=== PATIENT | male | born 1995 | race Caucasian/White ===

== ENCOUNTER → 2021-02-05 09:58 | Outpatient (BNVA) | payer SELFPAY | PROVIDERS: Visit Provider Specialist | DX: G56.03 Carpal tunnel syndrome, bilateral upper limbs (principal); R20.0 Anesthesia of skin; R20.2 Paresthesia of skin | CPT/HCPCS: 95910 ==

== ENCOUNTER 2021-10-14 10:32 | Emergency (ER) | payer SELFPAY ==
[2021-10-14 11:30] VITALS: BP 120/70; PULSE 70; RESP 16; TEMP 36.7; O2SAT 100; BMI 21.7
--- NOTE | 2021-10-14 11:53 | XRR_ITS ---
PROCEDURE INFORMATION: Exam: XR Lumbosacral Spine Exam date and time: 10/14/2021 11:53 AM Age: 25 years old Clinical indication: Low back pain TECHNIQUE: Imaging protocol: XR of the lumbosacral spine. Views: 2 or 3 views. COMPARISON: CT abdomen pelvis w con* [id number] 09/06/2015 8:06 PM FINDINGS: Bones/joints: There are 5 lumbar type vertebral bodies. There is a grade 1 retrolisthesis of L5 that is unchanged from prior. No acute fracture is identified. No significant degenerative disc disease is appreciated. The sacroiliac joints are grossly symmetric. The sacrum is partially obscured by overlying bowel gas/stool. XR/XR lumbar spine 2-3V* [id number] IMPRESSION: 1. No acute abnormality is identified. Consider MRI of the lumbar spine to further assess if clinically warranted. 2. Unchanged grade 1 retrolisthesis of L5. Radiation Dose CTDIVOL = (mGy): DLP = (mGy-cm)
[2021-10-14 11:58] VITALS: BP 123/74; PULSE 73; RESP 18; O2SAT 100
--- NOTE | 2021-10-14 12:53 | ED_ITS ---
HPI - Back Pain/Injury General: Chief Complaint: Back Pain/Injury Stated Complaint: LOWER BACK PAIN Time Seen by Provider: 10/14/21 11:36 Source: patient Mode of arrival: ambulatory Limitations: no limitations History of Present Illness: HPI Narrative: 25-year-old male presents to the ER today for low back pain x2 to 3 days. Patient reports he was bent over this weekend lifting a laundry basket when he felt a pop in his low back. Patient reports he has had severe pain since that time. He reports the pain is located midline in the low back but does radiate down into the right buttock. Patient reports history of back pain but no known diagnosis. Patient reports he has not taken anything at home for the pain at this time. Patient reports no numbness or tingling of the lower legs. Denies any loss of bowel or bladder control at this time. MD elicited complaint: back pain Pertinent past history: prior back pain Onset (ago): day(s) Timing: constant Severity: severe Similar Symptoms Previously: Yes Quality: sharp, stabbing and aching Location: lumbar spine Radiation: buttocks (right side) Exacerbating factors: movement and walking Relieving factors: none Context: while lifting and bending Associated symptoms: Reports no associated symptoms; Deny abdominal pain, chills, fever(s), nausea or vomiting Work related injury: No Review of Systems General: Reports: 10 or more systems reviewed and unremarkable except in HPI and below Const: Denies: fever(s), chills or body aches ENMT: Denies: throat pain, nasal discharge or nasal congestion Card: Denies: chest pain or palpitations Resp: Denies: dyspnea, productive cough or wheezing GI: Denies: abdominal pain, nausea, vomiting, diarrhea or constipation Musc: Reports: back pain; Denies: neck pain Skin/Breast: Denies: rash Neuro: Denies: headache(s) Physical Exam Const: COMMON NORMALS: average body habitus, patient oriented x3 and healthy appearing GENERAL APPEARANCE: cooperative and in distress (mild with movement); not comfortable HENMT: COMMON NORMALS: normocephalic, external ears normal and Normal external nose present HEAD & SCALP: normocephalic NOSE: Normal external nose present EXTERNAL EAR: Yes external ears normal Eye: COMMON NORMALS: conjunctivae normal CONJUNCTIVA: Yes conjunctivae normal Neck/C-Spine: COMMON NORMALS: full ROM and no lymphadenopathy Resp: COMMON NORMALS: normal respiratory effort, No retractions and clear to auscultation bilaterally AUSCULTATION: clear to auscultation bilaterally Cardio: COMMON NORMALS: regular rate and regular rhythm RATE: regular rate RHYTHM: regular rhythm GI: COMMON NORMALS: Normal to inspection, nondistended, normoactive bowel sounds present and non-tender : COMMON NORMALS: Yes no CVA tenderness BLADDER/KIDNEY EXAM: Yes no CVA tenderness Back/Pelvis: COMMON NORMALS: no CVA tenderness THORACIC SPINE/UPPER BACK: Yes normal to inspection and Yes thoracic ROM normal LUMBAR SPINE/LOWER BACK: Yes normal to inspection, Yes ROM limited (secondary to pain), Yes pain with ROM, Yes lumbar spinal tenderness, No paraspinal muscle tenderness, No paraspinal muscle spasm and Yes bend over test abnormal PELVIS: Yes buttocks normal SACROILIAC JOINTS: Yes SI joints normal Extremity: COMMON NORMALS: normal to inspection and full ROM Neuro: COMMON NORMALS: patient oriented x3 and moves all extremities Psych: COMMON NORMALS: mental status grossly normal, Normal thought process present and cooperative THOUGHT PROCESS: Normal thought process present Skin: COMMON NORMALS: no rashes or lesions noted GENERAL SKIN EXAM: no rashes or lesions noted Course ED course: Patient presents to the ER today for low back pain x2 to 3 days. Patient was lifting a laundry basket and felt a pop in his low back. We will get an x-ray at this time. Patient has not taken anything for pain but refuses anything at this time for pain. Vital Signs: Vital signs: Vital Signs Temperature 98.1 F 10/14/21 11:30 Pulse Rate 73 10/14/21 11:58 Respiratory Rate 18 10/14/21 11:58 Blood Pressure 123/74 10/14/21 11:58 Pulse Oximetry 100 10/14/21 11:58 MDM - Back Pain/Injury MDM Narrative: Medical decision making narrative: 25-year-old male presents to the ER today for low back pain after lifting a laundry basket Thursday. Patient reports pain is constant and located midline in the low back. He reports there is some radiation to the right buttock. On exam he is tender along the lower L- spine but no SI joint tenderness is noted. No muscle spasms noted on exam either. X-ray done in ER which indicates nothing acute, all chronic changes are noted on the x-ray. Patient may have a bulging disc causing his pain, which we better assessed on MRI. Patient is neurovascularly intact and has not had any issues with loss of bowel or bladder control. Discussed with patient that he likely he needs follow-up with his PCP for further imaging. We will do a muscle relaxer, anti-inflammatory, and steroid to try to lessen patient's pain at this time. Recommend warm moist heat alternating with ice, topical muscle rub but do not use with heat or ice, and rest. Return to the ER with any new or worsening symptoms. Patient verbalized understanding and is in agreement with this treatment plan. Imaging Data^: Other Xray: Radiologist's impression: [employer] [address] [address] XRay Report Signed Patient: Ayanna Lu Unit #: [id number] : 1995 Age/Sex: 25 / M ADM Date: 10/14/21 Loc: ER Room/Bed: Attending Dr: Ordering Provider/Ordering MD: Rachel Jade Date of Service: 10/14/21 Procedure(s): XR lumbar spine 2-3V* 80270 Accession Number(s): [id number] Report Number: [id number] PROCEDURE INFORMATION: Exam: XR Lumbosacral Spine Exam date and time: 10/14/2021 11:53 AM Age: 25 years old Clinical indication: Low back pain TECHNIQUE: Imaging protocol: XR of the lumbosacral spine. Views: 2 or 3 views. COMPARISON: CT abdomen pelvis w con* [id number] 09/06/2015 8:06 PM FINDINGS: Bones/joints: There are 5 lumbar type vertebral bodies. There is a grade 1 retrolisthesis of L5 that is unchanged from prior. No acute fracture is identified. No significant degenerative disc disease is appreciated. The sacroiliac joints are grossly symmetric. The sacrum is partially obscured by overlying bowel gas/stool. XR/XR lumbar spine 2-3V* [id number] IMPRESSION: 1. No acute abnormality is identified. Consider MRI of the lumbar spine to further assess if clinically warranted. 2. Unchanged grade 1 retrolisthesis of L5. Radiation Dose CTDIVOL = (mGy): DLP = (mGy-cm) Dictated By: Bandar Austin Signed By: Bandar Austin Signed Date/Time: 10/14/21 1254 DD/ 1153 Critical Care Time Critical Care Time: Critical Care Time: No Discharge Plan Discharge Patient Disposition: Home Clinical Impression: Acute bilateral low back pain Qualifiers: Sciatica presence: without sciatica Qualified Code(s): M54.50 - Low back pain, unspecified Condition: Stable Prescriptions: New methocarbamol 750 mg tablet 750 mg PO Q8H Qty: 21 RF: 0 Medrol (Nash) 4 mg tablets,dose pack See Rx Instructions PO .COMPLEX Qty: 21 RF: 0 ketorolac 10 mg tablet 10 mg PO Q8H PRN (Reason: pain) 3 Days RF: 0 Discharge Orders: Discharge ED (Routine); Ordered 10/14/21 Ordered By: Rachel Jade Discharge Diet: Usual diet Discharge Activity: Limit activity as instructed Patient Instructions: Acute Low Back Pain (ED), Opioid Safety Activity Restrictions/Additional Instructions: Take all medications as prescribed. Recommend warm, moist heat alternating with ice to the low back. Rest, and easy stretches recommended. Topical muscle rub recommended but do not use with heat or ice. If pain has not improved in 7 to 10 days, follow-up with PCP to discuss further imaging. Return to the ER with any new or worsening symptoms. Coding Level of Care Code ED Mathematics Technician for Maggy Fwd Exam Comprehensive
--- NOTE | 2021-10-18 13:35 | DCPLANNER ---
graphics manager had message to speak with patient about getting a primary care physician. graphics manager spoke with patient, he stated that he would like help in getting established with a physician. graphics manager called [facility], spoke with Casie, a follow up appointment was scheduled for October at 8:[address] Powell at [facility]. graphics manager called patient and gave patient the appointment information.
--- NOTE | 2021-11-13 15:13 | DCPLANNER ---
Patient had a follow up appointment scheduled with [facility] - patient did attend appointment.
== END 2021-10-14 13:13 | disposition home or self-care (01) ==
PROVIDERS: Emergency Provider Physician Assistant
DX: M54.50 Low back pain, unspecified (principal)
CPT/HCPCS: 72100; 99282

== ENCOUNTER → 2021-10-28 11:33 | Outpatient (BNVA) | payer SELFPAY | PROVIDERS: Visit Provider Registered Nurse Neonatal Intensive Care | DX: M79.671 Pain in right foot (principal); S89.91XA Unspecified injury of right lower leg, initial encounter; X58.XXXA Exposure to other specified factors, initial encounter | CPT/HCPCS: 73590; 73630 ==

== ENCOUNTER 2021-11-14 13:46 | Outpatient (CLI) | payer SELFPAY ==
--- NOTE | 2021-11-14 13:51 | XR_ITS ---
WS: [id number] Left hand, AP and lateral views, 11/14/2021 Clinical Data: FB/Injury Comparison: Left hand, 08/17/2014. Findings: No fractures or dislocations are seen. There is a metal fragment adjacent to the radial base of the s econd finger proximal phalanx. The joint spaces are normal XR/XR hand LT 2V [id number] Impression: 1. Negative for fracture. 2. Radiopaque foreign body adjacent to base of left second finger proximal phal anx.
--- NOTE | 2021-11-14 13:51 | XR_ITS ---
WS: [id number] Right ankle, 2 views, 11/14/2021 Clinical Data: Crush injury Comparison: None. Findings: No fractures or dislocations are seen. The ankle mortise is normal. The talus and calcaneus are unrem arkable. No soft tissue swelling over the medial or lateral malleolus is seen. XR/XR ankle RT 2V [id number] Impression: Negative right ankle.
--- NOTE | 2021-11-14 13:51 | XR_ITS ---
WS: [id number] Right leg including the tibia and fibula, 2 views, 11/14/2021 Clinical Data: Crush injury Comparison: None. Findings: No fractures or dislocations are seen. The tibia and fibula are intact. The soft tissues are normal. XR/XR tibia fibula RT 2V [id number] Impression: Negative for fracture.
== END 2021-11-14 13:47 | disposition home or self-care (01) ==
PROVIDERS: Visit Provider Nurse Practitioner Family
DX: S87.81XA Crushing injury of right lower leg, initial encounter (principal); S69.92XA Unspecified injury of left wrist, hand and finger(s), initial encounter; S60.451A Superficial foreign body of left index finger, initial encounter; X58.XXXA Exposure to other specified factors, initial encounter
CPT/HCPCS: 73120; 73590; 73600

== ENCOUNTER → 2022-12-24 16:18 | Outpatient (BNVA) | payer BC, SELFPAY | PROVIDERS: Visit Provider Nurse Practitioner Family | DX: R30.0 Dysuria (principal) | CPT/HCPCS: 81000 ==

== ENCOUNTER 2022-12-26 08:32 | Emergency (ER) | payer BC, MEDICAID, SELFPAY ==
--- NOTE | 2022-12-26 08:34 | ED_ITS ---
HPI - Male Genitourinary General: Chief complaint: Urogenital-Male Stated complaint: possible kidney stone Time Seen by Provider: 12/26/22 08:32 Source: patient Mode of arrival: ambulatory Limitations: no limitations History of Present Illness: Patient is a nice 27-year-old male who presents to ED today with a complaint of left flank and back pain over the past several days. Patient states he feels like he is urinating sand. He did notice some hematuria a few days ago but feels like this is cleared up. He [facility] and diagnosed with kidney/ureter stone and placed on Flomax. He has been taking this as directed. He states yesterday he had quite a bit of pain all day and felt like he was having chills. Patient states pain sometimes radiates into his abdomen. He has some nausea but has not had any episodes of emesis. No bowel changes. No documented fevers. He does have a history of kidney stones. He states his father has a longstanding history of stones. MD Complaint: other (flank pain, painful urination, concerned for stone) Onset (ago): day(s) Duration: constant Location: left flank Severity: severe Quality: sharp Relieving factors: none Exacerbating factors: urination Associated symptoms: Reports dysuria (reports it feels like he is urinating sand) and nausea; Deny hematuria or vomiting Related Data: Sexually active: Yes Review of Systems Const: Reports: chills; Denies: fever(s), body aches, fatigue or malaise Card: Denies: chest pain Resp: Denies: dyspnea GI: Reports: nausea; Denies: abdominal pain, vomiting or change in bowel habits : Reports: flank pain and dysuria (reports it feels like he is urinating sand); Denies: difficulty urinating, urinary frequency, urinary urgency, urinary hesitancy, urinary dribbling or hematuria Musc: Reports: back pain (L flank/back pain); Denies: neck pain, extremity pain, extremity swelling, joint pain or joint swelling Skin/Breast: Denies: rash Neuro: Denies: headache(s), numbness in extremities, weakness in extremities or sensory changes PFS ED PFSH: Social History Smoking and tobacco status: never smoked Physical Exam Const: COMMON NORMALS: average body habitus, patient oriented x3, no limitations, healthy appearing, alert and well nourished GENERAL APPEARANCE: cooperative and in distress (appears uncomfortable secondary to discomfort ) Resp: COMMON NORMALS: normal respiratory effort and clear to auscultation b ilaterally AUSCULTATION: clear to auscultation bilaterally Cardio: COMMON NORMALS: regular rate and regular rhythm RATE: regular rate RHYTHM: regular rhythm GI: COMMON NORMALS: Normal to inspection, nondistended, normoactive bowel sounds present, Soft to palpation, No hepatosplenomegaly present and no masses INSPECTION: Yes normal to inspection AUSCULTATION: Yes normoactive bowel sounds PALPATION: Yes Soft to palpation, Yes Tenderness to palpation present (GI) (mild throughout L abdomen), No Guarding due to palpation present (GI), No Rigid due to palpation and Yes No hepatosplenomegaly present : BLADDER/KIDNEY EXAM: Yes CVA tenderness on the left Back/Pelvis: COMMON NORMALS: thoracic and lumbar spine normal to inspection, no thoracic nor lumbar tenderness and thoraco-lumbar ROM normal GENERAL BACK: Yes CVA tenderness Extremity: COMMON NORMALS: normal to inspection GENERAL: Yes normal exam except as noted Neuro: CHRISTIANE COMA SCALE: document GCS findings Christiane coma scale eye opening: Spontaneous Christiane coma scale verbal response: Orientated [place] coma scale motor response: Obey commands [place] coma scale total score: 15 COMMON NORMALS: patient oriented x3, moves all extremities, no focal motor deficits, no sensory deficits noted and gait normal SENSORIUM/ORIENTATION: Yes alert Skin: COMMON NORMALS: no rashes or lesions noted GENERAL SKIN EXAM: no rashes or lesions noted Course Vital Signs: Vital signs: Vital Signs Pulse Rate 69 12/26/22 08:42 Respiratory Rate 16 12/26/22 09:04 Blood Pressure 116/60 12/26/22 10:30 Pulse Oximetry 99 12/26/22 09:52 Oxygen Delivery Me thod 12/26/22 08:42 MDM - Male Medical Decision Making Patient's vital signs are stable. Blood work is unremarkable. UA looks fairly normal. CT scan showing no obstructing renal or ureter calculi. Possibly patient recently passed stone given his history of hematuria few days ago that has now resolved. Discussed conservative treatment and management at home at this time. Return ED precautions given. Patient states he has an appointment with PCP next week that he can use for follow-up. Lab Data 12/26/22 09:04 12/26/22 09:04 Radiology Impressions Abdomen/Pelvis CT 12/26/22 08:42 IMPRESSION: 1. No obstructing renal or ureteral calculi. No hydronephrosis. 2. Enlarged calcified prostate measuring 4.1 cm. No evidence of bladder outlet obstruction. Correlation PSA. 3. Sigmoid diverticulosis. No evidence of acute diverticulitis. 4. Normal appendix in the RIGHT lower quadrant. No evidence of acute appendicitis. Laboratory Results WBC 5.5 10^3/uL (4.0-10.0) 12/26/22 09:04 RBC 4.96 10^6/uL (4.1-5.3) 12/26/22 09:04 Hgb 15.0 g/dL (11.7-16.6) 12/26/22 09:04 Hct 44.8 % (42.0-52.0) 12/26/22 09:04 MCV 90.3 fl (80-94) 12/26/22 09:04 MCH 30.2 pg (28.0-34.0) 12/26/22 09:04 MCHC 33.5 g/dL (30.0-36.0) 12/26/22 09:04 RDW 12.1 % (12.1-15.1) 12/26/22 09:04 Plt Count 135 10^3/cmm (130-400) 12/26/22 09:04 MPV 13.3 fL (7.4-10.4) H 12/26/22 09:04 Neut % (Auto) 60.7 % 12/26/22 09:04 Lymph % (Auto) 29.9 % 12/26/22 09:04 [place] % (Auto) 6.9 % 12/26/22 09:04 Eos % (Auto) 1.6 % 12/26/22 09:04 Baso % (Auto) 0.7 % 12/26/22 09:04 Neut # (Auto) 3.35 10^3/uL (1.8-7.7) 12/26/22 09:04 Lymph # (Auto) 1.7 10^3/uL (0.8-4.8) 12/26/22 09:04 [place] # (Auto) 0.4 10^3/uL (0.2-0.9) 12/26/22 09:04 Eos # (Auto) 0.1 10^3/uL (0.0-0.8) 12/26/22 09:04 Baso # (Auto) 0.0 10^3/uL (0.0-0.1) 12/26/22 09:04 Nucleated RBC % (auto) 0 % 12/26/22 09:04 Nucleated RBCs # 0.0 /100WBC 12/26/22 09:04 Sodium 140 mmol/L (136-145) 12/26/22 09:04 Potassium 4.2 mmol/L (3.5-5.1) 12/26/22 09:04 Chloride 103 mmol/L (98-107) 12/26/22 09:04 Carbon Dioxide 26 mmol/L (22-29) 12/26/22 09:04 Anion Gap 15.2 (5-19) 12/26/22 09:04 BUN 11 mg/dL (6-20) 12/26/22 09:04 Creatinine 0.7 mg/dL (0.7-1.2) 12/26/22 09:04 GFR Calculation 136.3 mL/min (90-130) H 12/26/22 09:04 Glucose 98 mg/dL (65-115) 12/26/22 09:04 Calculated Osmolality 289 mOsm/kg (285-295) 12/26/22 09:04 Calcium 9.4 mg/dL (8.5-10.5) 12/26/22 09:04 Total Bilirubin 0.4 mg/dL (0.15-1.2) 12/26/22 09:04 AST 13 U/L (0-40) 12/26/22 09:04 ALT 12 U/L (0-41) 12/26/22 09:04 Alkaline Phosphatase 106 U/L (40-130) 12/26/22 09:04 Total Protein 7.0 g/dL (6.6-8.7) 12/26/22 09:04 Albumin 4.8 g/dL (3.5-5.2) 12/26/22 09:04 Globulin 2.2 g/dL (1.3-4.6) 12/26/22 09:04 Urine Color Yellow (Yellow) 12/26/22 09:04 Urine Appearance Clear (CLEAR) 12/26/22 09:04 Urine pH 5 (5-7) 12/26/22 09:04 Ur Specific [place] 1.025 (1.005-1.030) 12/26/22 09:04 Urine Protein Neg (Negative) 12/26/22 09:04 Urine Glucose (UA) Norm (Normal) 12/26/22 09:04 Urine Ketones Negative (Negative) 12/26/22 09:04 Urine Blood Neg (Negative) 12/26/22 09:04 Urine Nitrate Negative (Negative) 12/26/22 09:04 Urine Bilirubin Neg (Negative) 12/26/22 09:04 Urine Urobilinogen 1 mg/dL (Negative) H 12/26/22 09:04 Ur Leukocyte Esterase Negative (Negative) 12/26/22 09:04 Discharge Plan Discharge Patient Disposition: Home Clinical Impression: Acute left-sided back pain Qualifiers: Back pain location: back pain in unspecified location Qualified Code(s): M54.9 - Dorsalgia, unspecified Condition: Stable Prescriptions: No Action indomethacin 25 mg capsule 25 - 50 mg PO TID PRN (Reason: pain) Qty: 15 0RF Rx Instructions: administer with food or milk tamsulosin [Flomax] 0.4 mg capsule 0.4 mg PO DAILY Qty: 14 0RF acetaminophen 325 mg Capsule 650 mg PO QID PRN (Reason: Pain) Discharge Orders: Discharge ED (Routine); Ordered 12/26/22 Ordered By: Sanjuanita Middleton Coding Level of Care Code ED Hot Metal Charger for Maggy Rueda
[2022-12-26 08:39] VITALS: BMI 21.7
[2022-12-26 08:42] VITALS: BP 115/62; PULSE 69; RESP 18; O2SAT 98
--- NOTE | 2022-12-26 08:42 | CT_ITS ---
WS: [id number] CT ABDOMEN PELVIS TECHNIQUE: Noncontrast CT of the abdomen and pelvis with coronal and sagittal reformatted images. CLINICAL INFORMATION: L flank/back pain COMPARISON: CT 10 015 DLP: 349.[address] scans at [facility] use at least one of these dose optimization techniques: automated e xposure control; mA and/or kV adjustment per patient size (includes targeted exams where dose is matc hed to clinical indication); or iterative reconstruction. FINDINGS: No obstructing renal or ureteral calculi. No hydronephrosis in either kidney. LEFT ureter is decompre ssed. Lung bases are well aerated. Noncontrast liver is normal. Normal noncontrast spleen. Normal GE juncti on. Normal noncontrast gallbladder. Noncontrast pancreas appears normal. Adrenal glands appear normal . Normal caliber abdominal aorta. Enlarged calcified prostate measuring 4.1 CM. No evidence of bladder outlet obstruction. Diffuse blad ida wall thickening. Sigmoid diverticulosis. No evidence of acute diverticulitis. CT/CT kidney stone [id number] IMPRESSION: 1. No obstructing renal or ureteral calculi. No hydronephrosis. 2. Enlarged calcified prostate measuring 4.1 cm. No evidence of bladder outlet obstruction. Correlation PSA. 3. Sigmoid diverticulosis. No evidence of acute diverticulitis. 4. Normal appendix in the RIGHT lower quadrant. No evidence of acute appendici tis.
[2022-12-26] MEDS: ondansetron 2 mg/ML SDV 2 mL 4 MG IVP (09:03)
[2022-12-26 09:04] VITALS: RESP 16
[2022-12-26] MEDS: sodium chloride 0.9% 1,000 ML 999 ML IV (09:04)
[2022-12-26] MEDS: HYDROmorphone 1 mg/mL INJ 1 mL 0.5 MG IVP (09:04)
[2022-12-26 09:13] LABS: Basophils % 0.7 %; Eosinophils # 0.1 10^3/uL (0.0-0.8); Eosinophils % 1.6 %; Hematocrit 44.8 % (42.0-52.0); Lymphocytes # 1.7 10^3/uL (0.8-4.8); Lymphocytes % 29.9 %; Mean Corpuscular HGB Conc 33.5 g/dL (30.0-36.0); Mean Corpuscular Hemoglobin 30.2 pg (28.0-34.0); Mean Corpuscular Volume 90.3 fl (80-94); Monocytes # 0.4 10^3/uL (0.2-0.9); Monocytes % 6.9 %; Neutrophils # 3.35 10^3/uL (1.8-7.7); Neutrophils % 60.7 %; Nucleated Red Blood Cells % 0 %; Platelet Count 135 10^3/cmm (130-400); Red Blood Count 4.96 10^6/uL (4.1-5.3); Red Cell Distribution Width 12.1 % (12.1-15.1); White Blood Count 5.5 10^3/uL (4.0-10.0)
[2022-12-26 09:21] LABS: Add Urine Microscopic? NO; Charge for UA Resulting for Rev
[2022-12-26 09:28] LABS: Bilirubin Urine Neg (Negative); Blood Urine Neg (Negative); Glucose Urine UA Norm (Normal); Ketones Urine Negative (Negative); Leukocyte Esterase Urine Negative (Negative); Nitrate Urine Negative (Negative); Protein Urine Neg (Negative); Specific Gravity, Urine 1.025 (1.005-1.030); Urine Appearance Clear (CLEAR); Urine Color Yellow (Yellow); Urobilinogen Urine 1 mg/dL (Negative); pH Urine 5 (5-7)
[2022-12-26 09:31] LABS: Slide Review Slide Review Perform
[2022-12-26 09:32] LABS: Alanine Aminotransferase 12 U/L (0-41); Albumin Level 4.8 g/dL (3.5-5.2); Alkaline Phosphatase 106 U/L (40-130); Anion Gap 15.2 (5-19); Aspartate Amino Transferase 13 U/L (0-40); Blood Urea Nitrogen 11 mg/dL (6-20); Calcium 9.4 mg/dL (8.5-10.5); Carbon Dioxide 26 mmol/L (22-29); Chloride 103 mmol/L (98-107); Globulin 2.2 g/dL (1.3-4.6); Glomerular Filtration Rate 136.3 mL/min (90-130); Glucose 98 mg/dL (65-115); Osmolality Calculated 289 mOsm/kg (285-295); Potassium 4.2 mmol/L (3.5-5.1); Sodium 140 mmol/L (136-145); Total Bilirubin 0.4 mg/dL (0.15-1.2)
[2022-12-26 09:33] LABS: Mean Platelet Volume 13.3 fL (7.4-10.4)
[2022-12-26 09:52] VITALS: BP 116/70; O2SAT 99
[2022-12-26 10:00] VITALS: BP 116/70
[2022-12-26 10:30] VITALS: BP 116/60
== END 2022-12-26 10:44 | disposition home or self-care (01) ==
PROVIDERS: Emergency Provider Physician Assistant
DX: M54.9 Dorsalgia, unspecified (principal)
CPT/HCPCS: 74176; 80053; 81003; 85025; 96361; 96374; 96375; 99285; J1170; J2405; J7030

== ENCOUNTER → 2022-12-30 10:27 | Outpatient (BNVA) | payer BC, SELFPAY | PROVIDERS: PCP Family Medicine; Visit Provider Family Medicine | DX: N20.0 Calculus of kidney (principal) | CPT/HCPCS: 80053; 85025 ==

== ENCOUNTER 2023-01-15 12:12 | Emergency (ER) | payer BC, MEDICAID, SELFPAY ==
[2023-01-15 12:13] VITALS: BP 122/76; PULSE 73; RESP 14; TEMP 36.9; O2SAT 99
--- NOTE | 2023-01-15 15:46 | ED_ITS ---
HPI - Extremity Problem General: Chief complaint: Extremity Injury, Upper Stated complaint: foreign object in left hand Time Seen by Provider: 01/15/23 15:40 Source: patient Mode of arrival: ambulatory Limitations: no limitations History of Present Illness: Patient is a 27-year-old male who presents to ED today with a complaint of a foreign body in his left hand that has been present over the past 3 years. Patient states foreign body has migrated proximally and is now centered around his left second metacarpal head on the volar aspect of his hand/palm. Patient states he feels like the foreign body is now starting to catch on things and interfere with daily functions and work. He is requesting that we remove it today. MD Complaint: extremity pain and other (fb hand) Onset (ago): year(s) Pain Consistency: constant Location: left and upper extremity Radiation: none Relieving factors: nothing Exacerbating factors: range of motion Associated symptoms: Reports no associated symptoms; Deny fever(s) Context: other (metal fb) Review of Systems Const: Denies: fever(s), chills, body aches, fatigue or malaise Musc: Reports: extremity pain (L hand); Denies: neck pain, back pain, extremity swelling, joint pain or joint swelling Skin/Breast: Reports: other (fb L hand) Neuro: Denies: numbness in extremities, weakness in extremities or sensory changes PFS ED PFSH: Medical History Bilateral hand pain Nephrolithiasis Family History Grandfather Cancer leukemia and colon--paternal Mother Hypertension Father Hypertension Hyperlipidemia Melena Denies family history of Diabetes CAD (coronary artery disease) Clotting disorder Dementia Psychiatric illness Chronic kidney disease (CKD) Anesthesia complication Bleeding disorder Lung disease Stroke Social History Smoking and tobacco status: current every day smoker e-cigarettes E-Cigarette Details: vaporizer device E-cig/vape details: vapin 100ml q 2 weeks and smokeless tobacco Smokeless tobacco user: chewing tobacco Smokeless tobacco details: 1 can a week Alcohol intake: never Lives independently: Yes Marital status: Number of children: 2 Current occupational status: employed 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 Current gender identity: Male Special leroy needs: No Agree to transfusion: Yes Physical Exam Const: COMMON NORMALS: no acute distress, average body habitus, patient oriented x3, no limitations, healthy appearing, alert and well nourished Extremity: COMMON NORMALS: full ROM, capillary refill normal, no joint enlargement and no clubbing, cyanosis or edema GENERAL: Yes normal exam except as noted LEFT UPPER EXTREMITY: Yes hand & digits OTHER: pt has palpable foreign body to the volar aspect overlying the second metacarpal head/MCP joint; full ROM of digit but pt states is painful Neuro: COMMON NORMALS: patient oriented x3 SENSORIUM/ORIENTATION: Yes alert Course Vital Signs: Vital signs: Vital Signs Temperature 98.5 F 01/15/23 12:13 Pulse Rate 62 01/15/23 15:58 Respiratory Rate 17 01/15/23 15:58 Blood Pressure 108/67 01/15/23 15:58 Pulse Oximetry 99 01/15/23 12:13 Oxygen Delivery Me thod 01/15/23 12:13 MDM - Extremity (Nontraumatic) Medical Decision Making Had XR on 11/05 showing: Radiopaque foreign body adjacent to base of left second finger proximal phalanx. I don't feel there is any need to repeat an XR today as foreign body is easily palpable on exam. Patient is requesting that I remove it today. I do not feel this is appropriate from an ED standpoint. Foreign body has been present for 3 years now. No infection. It is overlying the joint and certainly flexor tendon injury would be a risk with removal. I will refer him to orthopedics now that it has become increasingly bothersome and see if they would like to remove it. Discharge Plan Discharge Patient Disposition: Home Clinical Impression: Foreign body of hand, left Qualifiers: Encounter type: initial encounter Qualified Code(s): S60.552A - Superficial foreign body of left hand, initial encounter Condition: Stable Prescriptions: No Action No Known Home Medications Discharge Orders: Discharge ED (Routine); Ordered 01/15/23 Ordered By: Sanjuanita Middleton Referrals: Cristhian Chou MD [Primary Care Provider] - Stand Alone Forms: Work/School Release Coding Level of Care Code ED Oscillograph Technician for Maggy Rueda
[2023-01-15 15:58] VITALS: BP 108/67; PULSE 62; RESP 17
--- NOTE | 2023-01-16 08:53 | DCPLANNER ---
Addendum entered by Kamala Torres 02/03/23 08:54: Patient had a follow up appointment scheduled with ortho - patient did attend appointment Addendum entered by Kamala Torres 01/22/23 07:26: Patient has a follow up appointment scheduled for Thursday, February 02, 2023 at 7:[address] Marlow at ortho. Clinic will call patient with appointment information. Original Note: manager location had massage to schedule a follow up appointment for patient with ortho. manager location sent patients information to the front office staff at ortho. Patients information will be printed and reviewed. Clinic will call patient with appointment information.
== END 2023-01-15 16:05 | disposition home or self-care (01) ==
PROVIDERS: Emergency Provider Physician Assistant; PCP Family Medicine
DX: M79.5 Residual foreign body in soft tissue (principal); F17.290 Nicotine dependence, other tobacco product, uncomplicated
CPT/HCPCS: 99282

== ENCOUNTER 2023-01-29 07:42 | Outpatient (CLI) | payer BC, MEDICAID, SELFPAY ==
--- NOTE | 2023-01-29 07:15 | USCV_ITS ---
Ayanna Lu Age: 27 Gender: M : 1995 Exam Date: 01/29/2023 08:05 Ordering Phys: Cristhian Chou MD Technologist: Chris Lee Exam Location: [facility] [place] Indication: substernal chest pain BP: 120 / 80 HR: 68 Rhythm: Sinus Technical Quality: Adequate MEASUREMENTS (Male / Female) Normal Values 2D ECHO LV Diastolic Diameter PLAX 5.3 cm 4.2 - 5.9 / 3.9 - 5.3 cm LV Systolic Diameter PLAX 3.5 cm IVS Diastolic Thickness 0.9 cm 0.6 - 1.0 / 0.6 - 0.9 cm IVS Systolic Thickness 1.2 cm LVPW Diastolic Thickness 1.1 cm 0.6 - 1.0 / 0.6 - 0.9 cm LVPW Systolic Thickness 1.5 cm LVOT Diameter 2.0 cm LV Ejection Fraction 2D Teich 62.0 % LV Ejection Fraction MOD 2C 69.9 % LV Ejection Fraction 2C AL 70.1 % LA Diameter 3.0 cm LA Width 3.0 cm LA Height 4.7 cm RA Width 4.4 cm RA Height 4.3 cm Aorta at Sinotubular Diameter 2.0 cm IVC Diameter 1.9 cm M-MODE Aortic Annulus Diameter 2.7 cm LA Ao Ratio MM 1.1 MV E Point Septal Separation 0.6 cm DOPPLER AV Peak Velocity 128.0 cm/s LVOT Peak Velocity 97.0 cm/s AV Area Cont Eq vti 2.3 cm squared AV Area Cont Eq pk 2.4 cm squared MV Peak Velocity 106.0 cm/s MV Area PHT 4.8 cm squared Mitral E to A Ratio 1.8 MV E' Velocity 57.0 cm/s Mitral E to MV E' Ratio 6.1 Mitral E to LV E' Lateral Ratio 6.5 Mitral E to LV E' Septal Ratio 5.8 TR Peak Velocity 285.4 cm/s TR Peak Gradient 32.6 mmHg TR Mean Velocity 210.9 cm/s TR Mean Gradient 19.4 mmHg TR Velocity Time Integral 68.0 cm Right Atrial Pressure 3.0 mmHg Pulmonary Artery Systolic Pressu 35.6 mmHg PV Peak Velocity 91.0 cm/s RV Acceleration Time 0.1 s RV Ejection Time 0.3 s RV AcT/ET 0.5 FINDINGS Left Ventricle Normal left ventricular size, systolic function and wall thickness, with no regional wall motion abnormalities.left ventricular ejection fraction is estimated at 60 %. Grade I/IV diastolic dysfunction (abnormal relaxation filling pattern), normal to mildly elevated filling pressures. Right Ventricle The right ventricle is normal in size and function. Right Atrium The right atrium is normal in size. Left Atrium The left atrium is normal in size. Mitral Valve Structurally normal mitral valve without significant stenosis or prolapse. There is trace mitral regurgitation. Aortic Valve Structurally normal aortic valve without significant sclerosis or stenosis. There is no aortic regurgitation. Tricuspid Valve Tricuspid valve sclerosis. Mild tricuspid valve regurgitation. . Pulmonary artery systolic pressure is normal. Pulmonic Valve Structurally normal pulmonic valve without significant stenosis. There is no pulmonic regurgitation. Pericardium Normal pericardium without effusion. Aorta Normal ascending aorta dimension. IVC The inferior vena cava appears normal. CONCLUSIONS 1-Normal left ventricular size, systolic function and wall thickness, with no regional wall motion abnormalities.left ventricular ejection fraction is estimated at 60 %. Grade I/IV diastolic dysfunction (abnormal relaxation filling pattern), normal to mildly elevated filling pressures. 2-Structurally normal mitral valve without significant stenosis or prolapse. There is trace mitral regurgitation. 3- Tricuspid valve sclerosis. Mild tricuspid valve regurgitation. . Pulmonary artery systolic pressure is normal. 4-Right atrial pressure is around 5 mm of mercury. Carmelo Santacruz MD (Electronically Signed) Final Date: 29 January 2023 20:55 S
== END 2023-01-29 07:43 | disposition home or self-care (01) ==
LOC: RAD 07:44
PROVIDERS: PCP Family Medicine; Visit Provider Family Medicine
DX: R07.9 Chest pain, unspecified (principal); R55 Syncope and collapse; R00.2 Palpitations; I07.9 Rheumatic tricuspid valve disease, unspecified
CPT/HCPCS: 80053; 85025; 93306

== ENCOUNTER → 2023-02-02 10:07 | Outpatient (BNVA) | payer BC, MEDICAID, SELFPAY | PROVIDERS: PCP Family Medicine; Referring Provider Physician Assistant; Visit Provider Student in an Organized Health Care Education/Training Program | DX: S60.552A Superficial foreign body of left hand, initial encounter (principal); M65.322 Trigger finger, left index finger; W26.8XXA Contact with other sharp object(s), not elsewhere classified, initial encounter; W45.8XXA Other foreign body or object entering through skin, initial encounter; W27.0XXA Contact with workbench tool, initial encounter | CPT/HCPCS: 73130 ==

== ENCOUNTER 2023-02-25 05:45 | Day surgery (SDC) | payer BC, MEDICAID, SELFPAY ==
[2023-02-24 09:45] VITALS: BMI 21.7
[2023-02-25] VITALS (7 sets, daily range): BP systolic 85–120; BP diastolic 41–75; PULSE 49–71; RESP 14–17; TEMP 36.1–36.6; O2SAT 97–99
--- NOTE | 2023-02-25 06:34 | W.PM.OPSUD ---
Surgery/Procedure H&P Update DATE OF PROCEDURE: February 25, 2023 DATE H&P PERFORMED: 02/02/23 CHANGES TO PREVIOUS DOCUMENTATION: None. Patient has severe tenderness palpation over foreign body of the left hand over the A1 sarah of the left index finger. Continues to have persistent pain and enabling his activity and working with his hands. He also notices an some triggering of his left index finger when he flexes down. Plan will be to proceed with a left hand foreign body removal and left index finger trigger release. He understands importance of keeping this incision clean postoperatively to prevent infection. He understands risk benefits complication alternatives to surgery and understanding risk of surgery he agrees to proceed. PREOP DIAGNOSIS: Left hand foreign body, left index trigger finger PRIMARY INDICATION FOR PROCEDURE: Left hand foreign body, left index finger trigger PLANNED PROCEDURE: Operation Date: 02/25/23 07:00 Proposed Procedures p Trigger finger release left index finger: 72211,m65.30(Left) - Yoshi Marlow DO
[2023-02-25] MEDS: sodium chloride 0.9% 1,000 ML 30 ML IV (06:38)
[2023-02-25] MEDS: acetaminophen 1,000 MG/100 ML PIGGYBACK 400 MG IV (06:40)
[2023-02-25] MEDS: ketorolac 30 mg/mL INJ IVP (06:45)
[2023-02-25] MEDS: ceFAZolin 2,000 MG in sodium chloride 0.9% (plus) 50 ML 100 MG IV (06:55)
--- NOTE | 2023-02-25 07:44 | PM.OP2 ---
Brief Operative Note Date of procedure: 02/25/23 Pre-op diagnosis: Left hand foreign body, left index finger trigger Post-op diagnosis: same Procedure Done: Left hand foreign body removal Left index finger trigger release Surgeon: Yoshi Marlow Estimated blood loss (mL): 1 Complications: None Post-op Plan: Patient taken to PACU in stable condition recovering well. Patient's dressing on in place clean dry and intact. Patient receive appropriate discharge structure as well as pain medication postoperatively. Will be allowed weightbearing as tolerated to the left hand. Patient to follow-up with me in the office in 2 weeks. Patient understands agrees to current plan. All questions answered. Condition: stable Disposition: same day Coding Level of Care Code Acute Code for Maggy Rueda
--- NOTE | 2023-02-25 07:44 | PM.OP ---
Operative Report Date of procedure: February 25, 2023 Pre-op diagnosis: Preop Diagnosis Left hand foreign body, left index trigger finger Post-op diagnosis: Same Procedure done: Left hand foreign body removal Left index finger trigger release Specimens removed/disposition: Metallic/graphite foreign body removal Surgeon: Yoshi Marlow DO Estimated blood loss: 1 CC 9 minutes IV fluids: 500 mL Complications: None Findings: See operative report narrative Condition: stable Disposition: same day Brief History: Patient is a 27-year-old male who states he had a injury roughly 3 years ago where he was working with a chisel and a piece broke off and entered his hand. He subsequently left this alone which went on to heal without any type of infection however this metallic foreign body has become more pronounced and become significantly painful with certain activities. He started to notice some triggering of his index finger as well. He is seen and worked up in the outpatient setting and findings consistent with his preoperative diagnosis. At this point time we talked about treatment options far as leaving this alone as this is starting to affect his daily work activities think in the next best step would be for surgical intervention for removal of this foreign body and also given this is right in the location of his A1 sarah and starting to have triggering would recommend we just release the A1 sarah to eliminate his triggering as well. Through shared decision-making he is agreeable and would like to proceed with this. All questions been answered at this time. He understands risk benefits complication alternatives of the surgical treatment option. Understanding his risk of surgery he agrees to proceed. Procedure: Patient seen evaluated in the preoperative holding area. Consent was reviewed and signed with patient. Correct extremity was then marked. Patient seen evaluated by Anesthesia Department once cleared for surgery was taken back to the operative suite transported on the OR table and placed in supine position all bony prominences well-padded patient was appropriate secured to the bed. Patient had a nonsterile tourniquet applied to the left upper arm and an armboard was applied to the left arm. Patient's left upper extremity was then prepped and draped in standard orthopedic fashion. Final timeout was performed. Patient received appropriate preoperative antibiotics. Esmarch tourniquet was used to exsanguinate the left upper extremity and tourniquet was insufflated to 250 mmHg. Under sterile aseptic technique I then performed a standard digital flexor tendon sheath block with the planned side of my incision. C arm was then brought in to localize the foreign body which was also palpable on examination over the directly over the A1 sarah of the left index finger. Once identified and I made a standard oblique incision centering over the A1 sarah and foreign body. Sharp scalpel incision was made only through skin. I then switched to Littler dissection scissors. At this point time encapsulated scar tissue around the metallic foreign body was then identified in the subcutaneous space. I then utilized Littler dissection scissors to spread along the digital neurovascular bundles both radially and ulnarly. My events and promotions assistant placed Kasdan retractors to protect this. There is no evidence of radial nerve injury and as a result I circumferentially dissected out the foreign body and this was subsequently excised with bipolar electrocautery. This was then placed in a cup and it was found to be metallic piece of chisel. I then took a final x-ray images to confirm foreign body was removed and this was confirmed. Next a thoroughly irrigated the wound bed and then proceeded with A1 sarah releases this was right on top of the flexor tendon sheath and local inflammation was noted around the flexor tendon sheath. I then identified the A1 sarah and utilizing dissection scissors with maintaining protection of the neurovascular bundle both radially and ulnarly incised the A1 sarah sheath and then utilizing a rag nail elevated the FDS and FDP out of a wound and there was no mechanical triggering residually noted. This completed the A1 sarah release as well as my procedure. The wound bed was then thoroughly irrigated. Tourniquet was deflated hemostasis satisfactory with bipolar electrocautery. There was no evidence of site of infection in this wound bed. I then subsequently closed the incision with interrupted nylon suture. Incision was covered with Xeroform 4 x 4's Curlex and an Geoffrey wrap. Patient was then awakened from anesthesia and taken to PACU in stable condition. Disposition: Patient taken to PACU in stable condition recovering well. Patient will receive appropriate discharge structure as well as pain medication postoperatively. Patient will follow-up with me in the office in 2 weeks. Patient understands and agrees with current plan. All questions answered.
--- NOTE | 2023-02-25 07:45 | PM.PACU ---
PACU note Narrative: Patient taken to PACU in stable condition recovering well. Patient's pain is controlled. Patient still has some decreased sensation secondary to local digital block to the left index finger. Fingertips warm well-perfused brisk capillary refill less than 2 seconds dressing on in place clean dry and intact. He is able to wiggle his fingers. Exam: awake
--- NOTE | 2023-02-25 09:25 | XR_ITS ---
WS: [id number] EXAMINATION: XR hand LT 2V 18907 REASON FOR EXAM: OR PICS COMPARISON: 02/02/2023 ORDER DATE: 02/25/2023 9:25 AM FINDINGS: The available C-arm views demonstrate removal of the dense foreign body located at the base of the in dex finger. XR/XR hand LT 2V [id number] IMPRESSION: Total fluoroscopy time 6.5 seconds
--- NOTE | 2023-02-25 09:26 | P.ANESASSM_ITS ---
Pre-Anesthetic Assessment Height/Weight: Height 1.83 m Weight 72.575 kg Temp Pulse Resp BP Pulse Ox O2 Del Method O2 Flow Rate 98 F 60 16 95/57 99 Room Air 6 02/25/23 08:02 02/25/23 08:17 02/25/23 08:17 02/25/23 08:17 02/25/23 08:17 02/25/23 08:17 02/25/23 07:50 Preop Diagnosis: Left hand foreign body, left index trigger finger Operation Date: 02/25/23 07:00 Proposed Procedures p Trigger finger release left index finger: 50754,m65.30(Left) - Yoshi [place], DO Familial anesthetic complications: none Was Beta Adrianna taken within 24 hours: N/A Was Clonidine taken within 24 hours: N/A Last intake: Intake Last Liquid Date 02/24/23 Last Liquid Time 22:30 Last Solid Date 02/24/23 Last Solid Time 18:30 Social No alcohol and No tobacco Exam alert, oriented x 3, clear to auscultation bilaterally and regular rate & rhythm Airway Submandibular: within normal limits Cervical ROM: within normal limits Mallampati: Class II Dentition: chipped History/ROS No significant history except as noted Anesthetic Plan ASA status: 1 Anesthesia: MAC Medications/Allergies Home Medications Medication Instructions Recorded Confirmed Last Taken Type hydrocodone 5 mg-acetaminophen 325 1 tab PO Q6H PRN pain 5 days #20 02/25/23 Unknown Rx mg tablet tabs ondansetron 4 mg disintegrating 4 mg PO DAILY 5 days #5 tabs 02/25/23 Unknown Rx tablet Allergies Allergy/AdvReac Type Severity Reaction Status Date / Time morphine Allergy Severe agression Verified 02/24/23 09:42 [facility] Anesthesia Medical History Bilateral hand pain Nephrolithiasis Family History Grandfather Cancer leukemia and colon--paternal Mother Hypertension Father Hypertension Hyperlipidemia Melena Denies family history of Diabetes CAD (coronary artery disease) Clotting disorder Dementia Psychiatric illness Chronic kidney disease (CKD) Anesthesia complication Bleeding disorder Lung disease Stroke Social History Smoking and tobacco status: current every day smoker e-cigarettes E-Cigarette Details: vaporizer device E-cig/vape details: vapin 100ml q 2 weeks and smokeless tobacco Smokeless tobacco user: chewing tobacco Smokeless tobacco details: 1 can a week Alcohol intake: never Lives independently: Yes Marital status: Number of children: 2 Current occupational status: employed 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
--- NOTE | 2023-02-25 15:27 | ANE.PACU2 ---
Inpatient post-anesthesia follow up: Airway intact: Yes Vital signs: Temperature 98 F Pulse Rate 60 Respiratory Rate 16 Blood Pressure 95/57 Pulse Oximetry 99 Oxygen Delivery Me thod Room Air Oxygen Flow Rate 6 Fraction of Inspir ed Oxygen Hydration adequate: Yes Nausea and vomiting: No Pain level: 1 Mental status: Baseline
== END 2023-02-25 08:35 | disposition home or self-care (01) ==
PROVIDERS: PCP Family Medicine; Visit Provider Student in an Organized Health Care Education/Training Program
PROC: (CPT 26055; principal; 2023-02-25 07:00)
DX: M79.5 Residual foreign body in soft tissue (principal); M65.322 Trigger finger, left index finger; F17.290 Nicotine dependence, other tobacco product, uncomplicated
CPT/HCPCS: 10120; 26055; 73120; 76000; J0131; J0690; J1885; J2250; J2704; J2795; J3010; J3490; J7030